=== PATIENT | female | born 1960 | race Caucasian/White ===

== ENCOUNTER 2024-04-13 10:54 | Emergency (ER) | payer MEDICAID ==
[~2024-04-13] VITALS: Ht 177.8 cm; Wt 141.0 kg
[2024-04-13 10:57] VITALS: RESP 16; TEMP 98.1; O2SAT 98
[2024-04-13 11:57] LABS: BASOPHILS % (AUTO) 0.5 % (0-1); EOSINOPHILS % (AUTO) 0.3 % (0-6); HEMATOCRIT 37.6 % (35.0-45.0); HEMOGLOBIN 12.5 g/dl (12.0-16.0); LYMPHOCYTES # (AUTO) 1.1 X10'3 (1.1-4.8); LYMPHOCYTES % (AUTO) 11.6 % (21-51); MEAN CORPUSCULAR HEMOGLOBIN 29.3 PG (27.0-31.0); MEAN CORPUSCULAR HGB CONC 33.2 g/dL (33.0-36.5); MEAN CORPUSCULAR VOLUME 88.5 FL (78-98); MEAN PLATELET VOLUME 8.2 FL (7.4-10.4); MONOCYTES # (AUTO) 0.6 X10'3 (0-0.9); MONOCYTES % (AUTO) 6.5 % (2-12); NEUTROPHILS # (AUTO) 7.6 X10'3 (1.8-7.7); NEUTROPHILS % (AUTO) 81.1 % (42-75); PLATELET COUNT 284 X10'3 (140-440); RED BLOOD COUNT 4.25 X10'6 (4.20-5.60); RED CELL DISTRIBUTION WIDTH 14.3 % (11.5-14.5); WHITE BLOOD COUNT 9.3 X10'3 (4.5-11.0)
[2024-04-13 12:23] LABS: ALBUMIN 3.6 G/DL (3.4-5.0); ANION GAP 9 (8-16); BLOOD UREA NITROGEN 15 MG/DL (7-18); BUN/CREATININE RATIO 17.4 (10.0-20.0); CALCIUM 9.1 MG/DL (8.5-10.1); CHLORIDE 110 MMOL/L (99-107); CREATININE 0.86 MG/DL (0.40-0.90); GLUCOSE 93 MG/DL (70-104); POTASSIUM 3.6 MMOL/L (3.5-5.1); SODIUM 143 MMOL/L (135-145); THYROID STIMULATING HORMONE 1.19 ulU/ml (0.34-4.50); TOTAL CARBON DIOXIDE 23.8 MMOL/L (24-32); eCRCL 73 ML/MIN; eGFR 67 ML/MIN
[2024-04-13 12:28] LABS: ETHANOL < 10 MG/DL (<10)
[2024-04-13 13:50] VITALS: BP_DIAS 121
[2024-04-13] MEDS ORDERED: AMLO5TAB16 PO (13:55)
[2024-04-13] MEDS ORDERED: NO HOME MEDS (13:58)
[2024-04-13 14:06] VITALS: BP_SYST 197; PULSE 109
[2024-04-13] MEDS: amLODIPine 5mg tablet PO ONE (14:06)
== END 2024-04-13 14:25 | disposition home or self-care (01) ==
LOC: ER 10:55
DX: F22 Delusional disorders (principal); Z20.822 Contact with and (suspected) exposure to COVID-19; Z79.899 Other long term (current) drug therapy
CPT/HCPCS: 36415; 80048; 80320; 84443; 85025; 87811; 99283

== ENCOUNTER 2024-04-14 09:12 | Emergency (ER) | payer MEDICAID ==
[~2024-04-14] VITALS: Ht 167.6 cm; Wt 143.2 kg
[~2024-04-14 09:12] MED LIST: AMLO5TAB16 PO; NO HOME MEDS
[2024-04-14 10:56] VITALS: BP 140/88; PULSE 100; RESP 18; TEMP 98.9; O2SAT 99
[2024-04-15] MEDS ORDERED: CEPH500C3 PO (11:46)
[2024-04-15] MEDS ORDERED: OLAN10TA73 PO (13:23)
[2024-04-15] MEDS ORDERED: AMLO5TAB PO (13:46)
[2024-04-15] MEDS ORDERED: CEPH500C2 PO (13:46)
== END 2024-04-14 10:57 | disposition home or self-care (01) ==
LOC: ER 09:13
DX: I10 Essential (primary) hypertension (principal); Z79.899 Other long term (current) drug therapy
CPT/HCPCS: 99281

== ENCOUNTER 2024-04-15 07:40 | Emergency (ER) | payer MEDICAID ==
[~2024-04-15] VITALS: Ht 177.8 cm; Wt 146.0 kg
[2024-04-15 09:37] LABS: URINE HCG NEGATIVE (NEG)
[2024-04-15 09:38] LABS: BILIRUBIN,URINE NEGATIVE (Neg); CLARITY,URINE CLOUDY (Clear); COLOR,URINE YELLOW (Yellow); GLUCOSE, URINE NEGATIVE (Neg); KETONES,URINE NEGATIVE (Neg); LEUKOCYTE ESTERASE ,URINE NEGATIVE (Neg); NITRITES, URINE POSITIVE (Neg); OCCULT BLOOD,URINE NEGATIVE (Neg); PROTEIN,URINE NEGATIVE (Neg); UROBILINOGEN,URINE 0.2 E.U/dL (0.2-1.0)
[2024-04-15 09:43] LABS: UA COLLECTION TYPE CLN CATCH MIDSTREAM
[2024-04-15 09:45] LABS: BACTERIA,URINE 4+ /HPF (Neg); RBC,URINE NONE SEEN /HPF (0-2); SQUAMOUS EPITHELIAL CELL,UR FEW /LPF (FEW); WBC,URINE 20-30 /HPF (0-4)
[2024-04-15 09:46] LABS: BASOPHILS % (AUTO) 0.4 % (0-1); EOSINOPHILS # (AUTO) 0.1 X10'3 (0-0.9); EOSINOPHILS % (AUTO) 0.6 % (0-6); HEMATOCRIT 42.6 % (35.0-45.0); HEMOGLOBIN 13.7 g/dl (12.0-16.0); LYMPHOCYTES # (AUTO) 0.8 X10'3 (1.1-4.8); LYMPHOCYTES % (AUTO) 10.5 % (21-51); MEAN CORPUSCULAR HEMOGLOBIN 29.7 PG (27.0-31.0); MEAN CORPUSCULAR HGB CONC 32.2 g/dL (33.0-36.5); MEAN CORPUSCULAR VOLUME 92.2 FL (78-98); MEAN PLATELET VOLUME 8.8 FL (7.4-10.4); MONOCYTES # (AUTO) 0.5 X10'3 (0-0.9); MONOCYTES % (AUTO) 7.1 % (2-12); NEUTROPHILS # (AUTO) 6.3 X10'3 (1.8-7.7); NEUTROPHILS % (AUTO) 81.4 % (42-75); PLATELET COUNT 209 X10'3 (140-440); RED BLOOD COUNT 4.62 X10'6 (4.20-5.60); RED CELL DISTRIBUTION WIDTH 15.2 % (11.5-14.5); WHITE BLOOD COUNT 7.8 X10'3 (4.5-11.0)
[2024-04-15 09:51] LABS: ALBUMIN 3.6 G/DL (3.4-5.0); ANION GAP 10 (8-16); BLOOD UREA NITROGEN 16 MG/DL (7-18); BUN/CREATININE RATIO 18.8 (10.0-20.0); CHLORIDE 111 MMOL/L (99-107); CREATININE 0.85 MG/DL (0.40-0.90); ETHANOL < 10 MG/DL (<10); GLUCOSE 93 MG/DL (70-104); POTASSIUM 3.5 MMOL/L (3.5-5.1); SODIUM 144 MMOL/L (135-145); THYROID STIMULATING HORMONE 1.01 ulU/ml (0.34-4.50); TOTAL CARBON DIOXIDE 22.7 MMOL/L (24-32); eCRCL 74 ML/MIN; eGFR 68 ML/MIN
[2024-04-15 10:05] LABS: URINE AMPHETAMINE SCREEN NEGATIVE (Neg); URINE BARBITUATE SCREEN NEGATIVE (Neg); URINE BENZODIAZEPINES SCREEN NEGATIVE (Neg); URINE CANNABINOID SCREEN NEGATIVE (Neg); URINE COCAINE SCREEN NEGATIVE (Neg); URINE METHADONE SCREEN NEGATIVE (Neg); URINE OPIATE SCREEN NEGATIVE (Neg); URINE PHENCYCLIDINE SCREEN NEGATIVE (Neg)
[2024-04-15] MEDS: cephalexin 250mg capsule PO ONE (11:21)
[2024-04-15] MEDS ORDERED: CEPH500C3 PO (11:46)
[2024-04-15] MEDS ORDERED: OLAN10TA73 PO (13:23)
[2024-04-15] MEDS ORDERED: CEPH500C2 PO (13:46)
[2024-04-15] MEDS ORDERED: AMLO5TAB PO (13:46)
[2024-04-15] MEDS: cephalexin 500mg capsule PO SCH (19:18)
[2024-04-15] MEDS: olanzapine 10mg tablet PO SCH (19:18)
[2024-04-16] MEDS: amLODIPine 5mg tablet PO SCH (07:35)
[2024-04-16] MEDS: OLANZAPINE 5 MG TABLET PO SCH (07:38)
[2024-04-16] MEDS ORDERED: CEPH-585 PO (15:42)
[2024-04-16] MEDS ORDERED: AMLO2.5T2 PO (15:43)
[2024-04-16 20:00] VITALS: BP_DIAS 94; RESP 18; TEMP 98; O2SAT 95
[2024-04-17 08:18] VITALS: BP_SYST 152; PULSE 105
== END 2024-04-17 12:19 | disposition still patient (30) ==
LOC: ER 07:41
DX: F99 Mental disorder, not otherwise specified (principal); Z20.822 Contact with and (suspected) exposure to COVID-19; N39.0 Urinary tract infection, site not specified; Z79.899 Other long term (current) drug therapy
CPT/HCPCS: 36415; 80048; 80305; 80320; 81001; 81025; 84443; 85025; 87811; 99284

== ENCOUNTER 2024-04-17 16:03 | Emergency (ER) | payer MEDICAID ==
[~2024-04-17] VITALS: Ht 177.8 cm; Wt 143.2 kg
[~2024-04-17 16:03] MED LIST changes: +AMLO2.5T2 PO; +AMLO5TAB PO; +CEPH-585 PO; +CEPH500C2 PO; +CEPH500C3 PO; +OLAN10TA73 PO
[2024-04-17 17:11] VITALS: BP 160/103; PULSE 80; RESP 17; TEMP 97.6; O2SAT 96
== END 2024-04-17 17:14 | disposition home or self-care (01) ==
LOC: ER 16:04
DX: Z00.00 Encounter for general adult medical examination without abnormal findings (principal); Z79.899 Other long term (current) drug therapy; Z79.2 Long term (current) use of antibiotics
CPT/HCPCS: 99281

== ENCOUNTER 2024-11-24 13:46 | Emergency (ER) | payer MEDICAID ==
[~2024-11-24] VITALS: Ht 177.8 cm; Wt 129.3 kg
[~2024-11-24 13:46] MED LIST changes: -AMLO2.5T2 PO; -AMLO5TAB16 PO; -CEPH500C2 PO; -CEPH500C3 PO; -NO HOME MEDS
--- NOTE | 2024-11-24 16:47 | Physician Documentation ---
History of Present Illness ~ Chief Complaint: Constipation Stated Complaint: CONSTIPATION Time Seen by MD: 19:06 HPI This is a 64-year-old female who presents with three weeks of constipation, patient reports she has not had a bowel movement three weeks. Patient reports no pain or fever. Patient reports she is passing gas. Patient reports that she started taking MiraLax this morning though has not had a bowel movement yet. Patient reports MiraLax prescribed by mental health provider after being hospitalized on a mental health hold. Medication Reconciliation Allergies: Coded Allergies: No Known Allergies (Unverified , 04/17/24) Scheduled Amlodipine Besylate (Amlodipine Besylate), 1 TABLET PO DAILY, (Reported) Bisacodyl (Bisacodyl), 1 SUPP RC DAILY Cephalexin*Monohydrate* (Keflex*), 1 CAP PO QID Olanzapine (Olanzapine), 25 MG PO HS, (Reported) Past Medical History Past Medical History: *PSYCH* Past Surgical History: no surgical history Drug Use: none Lives In: Other Review of Systems ROS Constipation as stated above in the HPI, otherwise all systems are reviewed and negative. Physical Exam Vital Signs: Temperature: 97.6, Source: Temporal, Heart Rate: 90, Respiratory Rate: 18, BP: 147/87, Pulse Oximetry: 97, Weight: 129.300 Physical Exam VITALS: Reviewed and as above. GENERAL: Alert, nontoxic appearing, no apparent distress. RESPIRATORY: No increased work of breathing, no respiratory distress, speaking in full clear sentences, sounds in all avila CV: Regular rate and rhythm no murmur GI: Soft, nontender, nondistended, no rebound, no guarding Progress Results/Orders Results/Orders Completed Orders - SIMA FORD [employer] Bisacodyl Suppository (Dulcolax Supposit (11/24/24 20:32) Medications Received in ER Medications (Trade) Dose Ordered Sig/Ilssette Route PRN Reason Start Time Stop Time Status Last Admin Dose Admin (Dulcolax suppository) 10 mg ONCE STAT RC 11/24/24 20:32 11/24/24 20:33 DC 11/24/24 20:41 10 MG Vital Signs 11/24/24 11/24/24 11/24/24 13:52 19:11 19:11 Temp 97.6 97.8 Pulse 90 88 Resp 18 16 16 B/P (MAP) 147/87 135/97 (110) Pulse Ox 97 100 O2 Flow Rate 0 EKG/XRAY/CT/US/VASC/MRI Abdominal X-Ray : Additional Comment I have reviewed and interpreted the imaging as: No intra abdominal free air, no air-fluid levels Medical Decision Making Findings This 64-year-old female presented with constipation, patient reports no bowel movement in three weeks however reported no abdominal pain or discomfort. Patient reports she is passing gas and has normal bowel sounds. Physical exam benign without abdominal tenderness. Patient has been previously prescribed laxative however just started taking it this morning. Patient's vital signs are stable and she is appropriate for outpatient follow up. Patient provided an additional laxative to help with her constipation and given home care instructions to include increasing fluid and fiber intake. Patient given the option to be treated for constipation in the emergency department with laxative and given the chance to wait to have a bowel movement however she prefers to go home to have bowel movement. Patient provided careful return to care precautions which she verbalized understanding of. Diff Dx Pain:Considerations: Include: Bowel obstruction, Inflammatory BD, Ischemic bowel, Other (Fecal impaction) Departure Time of Disposition: 20:34 Disposition: 01 HOME / SELF CARE / HOMELESS Impression: Primary Impression: Constipation Qualified Codes: K59.00 - Constipation, unspecified Condition: Stable Discharge Instructions: Constipation, Adult Additional Instructions: Please continue to use your prescribed MiraLax until you a bowel movement. Additionally use the prescribed suppository until you a bowel movement though do not use this for more than seven days. Increase your fiber intake I recommend having a fiber supplement such as MiraLax. Stay well hydrated. Please follow up with your primary care provider or the [facility] in the next few days. Please return to the emergency department for any new or worsening concerning symptoms including but not limited to vomiting or abdominal pain. Referrals: NO PRIMARY CARE PROVIDER (PCP) Prescriptions Bisacodyl (Bisacodyl) 10 Mg Supp.rect 1 SUPP RC DAILY for constipation for 6 Days, #6 SUPP 0 Refills Prov: SIMA FORD 11/24/24 Education Educated: Patient Educated regarding: diagnosis, treatment, prognosis, need for follow up Signature Scribe Signature: No scribe Attestation: The note accurately reflects work and decisions made by me.LISSETTE Menon 11/25/24 01:47 SIMA FORD November 24, 2024 16:47
[2024-11-24 19:11] VITALS: BP 135/97; PULSE 88; RESP 16; TEMP 97.8; O2SAT 100
[2024-11-24] MEDS ORDERED: BISA10SU11 RC (20:37)
[2024-11-24] MEDS: bisacodyl 10mg suppository rectal RC STA (20:41)
--- NOTE | 2024-11-26 14:05 | RADIOLOGY REPORT ---
Date: 11/24/2024 02:15 PM Examination: DI ABDOMEN,SINGLE VIEW(KUB) History: constipation Comparison: None TECHNIQUE: Frontal views of the abdomen was obtained. FINDINGS: Bowel gas pattern is unremarkable. Large stool burden. The lung bases are unremarkable. No acute osseous abnormality identified. IMPRESSION: Nonobstructive bowel gas pattern. Large stool burden.
== END 2024-11-24 20:52 | disposition home or self-care (01) ==
LOC: ER 13:47
DX: K59.00 Constipation, unspecified (principal); Z88.1 Allergy status to other antibiotic agents
CPT/HCPCS: 74018; 99283

== ENCOUNTER 2024-12-10 10:40 | Emergency (ER) | payer MEDICAID ==
[~2024-12-10] VITALS: Ht 177.8 cm; Wt 125.9 kg
[~2024-12-10 10:40] MED LIST changes: +BISA10SU11 RC
--- NOTE | 2024-12-10 10:53 | Physician Documentation ---
History of Present Illness ~ General Stated Complaint: GE Time Seen by MD: 10:54 OK to notify your PCP?: Yes Source: patient Mode of Arrival: POV Exam Limitations: no limitations History of Present Illness Initial Comments 64 y/o female here for medical clearance for [facility]. Patient states she needs rx for her olanzapine 2.5mg. Last took olanzapine October 2023 because she ran out of the rx. No hallucinations, delirium, SI or HI. No h/o violence or being in trouble with the law. Medication Reconciliation Allergies: Coded Allergies: No Known Allergies (Unverified , 04/17/24) Scheduled Amlodipine Besylate (Amlodipine Besylate), 1 TABLET PO DAILY, (Reported) Bisacodyl (Bisacodyl), 1 SUPP RC DAILY Cephalexin*Monohydrate* (Keflex*), 1 CAP PO QID Olanzapine (Olanzapine), 25 MG PO HS, (Reported) Past Medical History Past Medical History: *PSYCH* Past Surgical History: no surgical history Drug Use: none Lives In: Other Review of Systems All Other Systems at this time: Reviewed and Negative Physical Exam Physical Exam Physical Exam General Appearance: Alert, WD/WN. NAD. HEENT: NCAT, PERRL, EOMI. Neck: Supple, trachea midline. Cardiovascular: RRR. No m/r/g. Lungs: CTAB. Breathing unlabored Extremities: Normal inspection. No edema. Skin: Warm/dry, normal color Neurological: Alert and oriented x4, normal gait. Psychiatric: Affect congruent with mood. Progress Results/Orders Results/Orders Vital Signs 12/10/24 10:48 Temp 98.0 Pulse 91 Resp 16 B/P (MAP) 158/94 Pulse Ox 98 O2 Flow Rate 0 Medical Decision Making Differential Diagnosis Patient is stable without any acute psychiatric symptoms or complaints. Evaluated to make sure no psychosis, not gravely disabled or a danger to herself or others and she had no signs or symptoms concerning for this. Appeared to be here just for mediation refill and clearance for [facility]. Departure Time of Disposition: 13:15 Disposition: 01 HOME / SELF CARE / HOMELESS Impression: Primary Impression: Schizoaffective disorder Qualified Codes: F25.9 - Schizoaffective disorder, unspecified Condition: Stable Discharge Instructions: Medical Screening Exam Additional Instructions: REFILLED OLANZAPINE 2.5MG PATIENT HAS NO ACUTE PSYCHOTIC FEATURES, NOT GRAVELY DISABLED, NOT DANGER TO SELF OR OTHERS, NO REASON TO KEEP HERE ON HOLD. PATIENT IS CLEARED FOR [facility] FROM AN ER STANDPOINT BUT EXPLAINED THAT THERE MAY BE MORE INVOLVED IN ORDER FOR HER TO STAY THERE Referrals: NO PRIMARY CARE PROVIDER (PCP) Prescriptions Olanzapine (Olanzapine) 2.5 Mg Tablet 1 TAB PO HS for 30 Days, #30 TAB 0 Refills Prov: CARMELO LANDIS 12/10/24 Education Educated: Patient Educated regarding: diagnosis, treatment, need for follow up Signature Scribe Signature: X Attestation: X CARMELO LANDIS December 10, 2024 10:53
[2024-12-10] MEDS ORDERED: OLAN2.5T77 PO (13:15)
[2024-12-10] MEDS: OLANZapine 2.5MG tablet PO ONE (13:25)
[2024-12-10 13:35] VITALS: BP 155/79; PULSE 80; RESP 17; TEMP 98; O2SAT 99
== END 2024-12-10 13:38 | disposition home or self-care (01) ==
LOC: ER 10:41
DX: F25.9 Schizoaffective disorder, unspecified (principal); Z79.899 Other long term (current) drug therapy
CPT/HCPCS: 99283

== ENCOUNTER 2024-12-20 09:02 | Inpatient (IN) | payer MEDICAID ==
[~2024-12-20] VITALS: Ht 177.8 cm; Wt 116.0 kg
[~2024-12-20 09:02] MED LIST changes: +OLAN2.5T77 PO
--- NOTE | 2024-12-20 09:15 | Physician Documentation ---
History of Present Illness ~ Chief Complaint: Mental Health Eval Stated Complaint: MH EVAL Time Seen by MD: 09:12 HPI 64-YEAR-OLD FEMALE PRESENTS TO THE ED VIA [facility]. PATIENT WAS STAYING UNDER A TEMPORARY HOUSING VIA THE [facility]. HOW EVER THE PATIENT HAS A LONG HISTORY WITH MENTAL ILLNESS AND HIS REPORTEDLY NOT TAKING ALL OF HER PRESCRIBED MEDS. CAN NOT REPORT WHICH WHEN SHE IS SUPPOSED TO TAKE. OFFICIALS FROM THE [facility] INDICATE THAT SHE HAS BEEN BEHAVING ERRATICALLY WITH GRANDIOSE DELUSIONS YOUR CONCERNED THAT SHE NEEDS TO BE STABILIZED VIA MEDICATIONS AND POTENTIALLY SEEN AT THE [facility] IN ORDER FOR HER TO RETURN TO THE [facility] Medication Reconciliation Allergies: Coded Allergies: No Known Allergies (Unverified , 04/17/24) Scheduled Amlodipine Besylate (Amlodipine Besylate), 1 TABLET PO DAILY, (Reported) Bisacodyl (Bisacodyl), 1 SUPP RC DAILY Olanzapine (Olanzapine), 25 MG PO HS, (Reported) Olanzapine (Olanzapine), 1 TAB PO HS Quetiapine Fumarate (Quetiapine Fumarate), 1 TAB PO HS, (Reported) Discontinued Medications Cephalexin*Monohydrate* (Keflex*), 1 CAP PO QID Discontinued Reason: patient no longer taking Past Medical History Past Medical History: *PSYCH* Past Surgical History: no surgical history Drug Use: none Lives In: Other Review of Systems All Other Systems at this time: Reviewed and Negative ROS As stated above in the HPI, otherwise all systems are reviewed and negative. Physical Exam Physical Exam General: Alert, no apparent distress. Respiratory: Lungs clear, no respiratory distress. Neurologic: Oriented x3 Psychiatric: PLEASANT,YET ANXIOUS APPEARING. Speaking in tinge until sentences Skin: Normal color, warm and dry. No edema, no ecchymosis. Progress Results/Orders Results/Orders Orders - KENDRICK YOUNG NP Med Rec (12/20/24 09:11) 1799.11 (12/20/24 09:11) Close Observation Level (12/20/24 09:11) Covid19 Binax Poc Result Entry (12/20/24 09:11) Regular Diet (12/20/24 Lunch) Ceftriaxone 2gm/D5w 50ml Bag (Rocephin 2 (12/20/24 11:05) Page Hospitalist (12/20/24 ) Completed Orders - KENDRICK YOUNG NP Cbc/Diff (12/20/24 09:11) Hcg, Ur Ql (12/20/24 09:11) Drug Screen, Urine (12/20/24 09:11) Ethanol (12/20/24 09:11) TSH (12/20/24 09:11) BMP (12/20/24 09:11) Ua With Microscopic (12/20/24 10:23) Normal Saline 1000ml (Sodium Chloride 10 (12/20/24 11:05) Vital Signs 12/20/24 12/20/24 12/20/24 09:10 09:49 09:58 Temp 97.8 97.8 Pulse 108 89 Resp 18 18 17 B/P (MAP) 199/110 137/73 (94) Pulse Ox 97 96 Laboratory Tests Test 12/20/24 09:25 12/20/24 10:23 12/20/24 10:35 White Blood Count 9.3 Red Blood Count 4.44 Hemoglobin 13.2 Hematocrit 39.7 Mean Corpuscular Volume 89.5 Mean Corpuscular Hemoglobin 29.8 Mean Corpuscular Hemoglobin Concent 33.3 Red Cell Distribution Width 14.5 Platelet Count 294 Mean Platelet Volume 8.0 Neutrophils (%) (Auto) 80.0 H Lymphocytes (%) (Auto) 13.8 L Monocytes (%) (Auto) 5.1 Eosinophils (%) (Auto) 0.7 Basophils (%) (Auto) 0.4 Neutrophils # (Auto) 7.5 Lymphocytes # (Auto) 1.3 Monocytes # (Auto) 0.5 Eosinophils # (Auto) 0.1 Basophils # (Auto) 0.0 CBC Comment Sodium Level 146 H Potassium Level 3.6 Chloride Level 112 H Carbon Dioxide Level 21.7 L Anion Gap 12 Blood Urea Nitrogen 18 Creatinine 0.99 H Estimated GFR/1.73 m2 57 BUN/Creatinine Ratio 18.2 Glucose Level 156 H Calcium Level 9.0 Albumin 3.7 Thyroid Stimulating Hormone (TSH) 1.15 Chemistry Comments Ethyl Alcohol Level < 10 Urine Specimen Description Cln catch midstream Urine Color Yellow Urine Clarity Slightly cloudy Urine pH 6.0 Urine Specific [place] 1.025 Urine Protein Negative Urine Glucose (UA) Negative Urine Ketones Negative Urine Occult Blood Trace-intact Urine Nitrite Positive H Urine Bilirubin Negative Urine Urobilinogen 0.2 Urine Leukocyte Esterase Small H Urine RBC 0-2 Urine WBC Tntc H Urine WBC Clumps Few Urine Squamous Epithelial Cells Many Urine Transitional Epithelial Cells [place] Urine Bacteria 4+ Urine Mucus Few Volume Urine Centrifuged 10 ml Urine HCG, Qualitative Negative Urine Comment Urine Opiates Screen Negative Urine Methadone Screen Negative Urine Fentanyl Screen Negative Urine Barbiturates Screen Negative Urine Phencyclidine Screen Negative Urine Amphetamines Screen Negative Urine Benzodiazepines Screen Negative Urine Cocaine Screen Negative Urine Cannabinoids Screen Negative Drug Screen Comment Medical Decision Making Findings Further investigation patient's urinalysis came back with a positive UTI and positive nitrites. Maybe it is attributing to her change in behavior that has been reported by the [facility]. poor historian at this current time. Toxic appearing however I am going to request hospital admission for further evaluation to reassess her current metabolic encephalopathy likely secondary to her UTI Differential Dx:Considerations: Include: Alcohol abuse, Anxiety, Bipolar disorder, Conversion disorder, Depression, Encephaloathy, Homicidal, Panic disorder, Personality disorder, Schizophrenia, Substance abuse, Suicidal, Other Departure Impression: Primary Impression: Metabolic encephalopathy Additional Impressions: UTI (urinary tract infection) Pyelonephritis Referrals: NO PRIMARY CARE PROVIDER (PCP) Signature Scribe Signature: g Attestation: The note accurately reflects work and decisions made by me.Kendrick Winston NP 12/20/24 11:30 KENDRICK YOUNG NP Dec 20, 2024 09:15
[2024-12-20 09:37] LABS: BASOPHILS % (AUTO) 0.4 % (0-1); EOSINOPHILS # (AUTO) 0.1 X10'3 (0-0.9); EOSINOPHILS % (AUTO) 0.7 % (0-6); HEMATOCRIT 39.7 % (35.0-45.0); HEMOGLOBIN 13.2 g/dl (12.0-16.0); LYMPHOCYTES # (AUTO) 1.3 X10'3 (1.1-4.8); LYMPHOCYTES % (AUTO) 13.8 % (21-51); MEAN CORPUSCULAR HEMOGLOBIN 29.8 PG (27.0-31.0); MEAN CORPUSCULAR HGB CONC 33.3 g/dL (33.0-36.5); MEAN CORPUSCULAR VOLUME 89.5 FL (78-98); MONOCYTES # (AUTO) 0.5 X10'3 (0-0.9); MONOCYTES % (AUTO) 5.1 % (2-12); NEUTROPHILS # (AUTO) 7.5 X10'3 (1.8-7.7); PLATELET COUNT 294 X10'3 (140-440); RED BLOOD COUNT 4.44 X10'6 (4.20-5.60); RED CELL DISTRIBUTION WIDTH 14.5 % (11.5-14.5); WHITE BLOOD COUNT 9.3 X10'3 (4.5-11.0)
[2024-12-20 09:58] LABS: ALBUMIN 3.7 G/DL (3.4-5.0); ANION GAP 12 (8-16); BLOOD UREA NITROGEN 18 MG/DL (7-18); BUN/CREATININE RATIO 18.2 (10.0-20.0); CHLORIDE 112 MMOL/L (99-107); CREATININE 0.99 MG/DL (0.40-0.90); ETHANOL < 10 MG/DL (<10); GLUCOSE 156 MG/DL (70-104); POTASSIUM 3.6 MMOL/L (3.5-5.1); SODIUM 146 MMOL/L (135-145); THYROID STIMULATING HORMONE 1.15 ulU/ml (0.34-4.50); TOTAL CARBON DIOXIDE 21.7 MMOL/L (24-32); eCRCL 63 ML/MIN; eGFR 57 ML/MIN
[2024-12-20] MEDS ORDERED: QUET50TA24 PO (10:20)
[2024-12-20 10:36] LABS: BILIRUBIN,URINE NEGATIVE (Neg); CLARITY,URINE SLIGHTLY CLOUDY (Clear); COLOR,URINE YELLOW (Yellow); GLUCOSE, URINE NEGATIVE (Neg); KETONES,URINE NEGATIVE (Neg); LEUKOCYTE ESTERASE ,URINE SMALL (Neg); NITRITES, URINE POSITIVE (Neg); OCCULT BLOOD,URINE TRACE-INTACT (Neg); PROTEIN,URINE NEGATIVE (Neg); UROBILINOGEN,URINE 0.2 E.U/dL (0.2-1.0)
[2024-12-20 10:43] LABS: UA COLLECTION TYPE CLN CATCH MIDSTREAM
[2024-12-20 10:44] LABS: BACTERIA,URINE 4+ /HPF (Neg); MUCUS STRANDS FEW /LPF (Neg); RBC,URINE 0-2 /HPF (0-2); SQUAMOUS EPITHELIAL CELL,UR MANY /LPF (FEW); TRANSITIONAL EPI CELLS,URINE NNP /HPF; WBC CLUMPS,URINE FEW /HPF (NEGATIVE); WBC,URINE TNTC /HPF (0-4)
[2024-12-20 11:19] LABS: URINE AMPHETAMINE SCREEN NEGATIVE (Neg); URINE BARBITUATE SCREEN NEGATIVE (Neg); URINE BENZODIAZEPINES SCREEN NEGATIVE (Neg); URINE CANNABINOID SCREEN NEGATIVE (Neg); URINE COCAINE SCREEN NEGATIVE (Neg); URINE HCG NEGATIVE (NEG); URINE METHADONE SCREEN NEGATIVE (Neg); URINE OPIATE SCREEN NEGATIVE (Neg); URINE PHENCYCLIDINE SCREEN NEGATIVE (Neg)
[2024-12-20] MEDS: normal saline 1000ML IV soln IVB ONE (11:58)
[2024-12-20] MEDS: CefTRIAXone 2gm/D5W 50ml BAG 50 ML IV SCH (12:00)
[2024-12-20] MEDS ORDERED: ondansetron/PF 4mg/2ml inj IV PRN (13:25)
[2024-12-20] MEDS ORDERED: potassium Cl 40MEQ/1/2NS 520ml 520 ML IV PRN (13:25)
[2024-12-20] MEDS ORDERED: magnesium hydroxide 30ml (MOM) UD suspension PO PRN (13:25)
[2024-12-20] MEDS ORDERED: mag hydrox/Alum hydrox/simeth 30ml oral suspension PO PRN (13:25)
[2024-12-20] MEDS ORDERED: magnesium sulf-water 2g/50mL 50 ML IV PRN (13:25)
[2024-12-20] MEDS ORDERED: acetaminophen 325mg tablet PO PRN (13:25)
[2024-12-20] MEDS ORDERED: potassium Cl 20 mEq SR tablet PO PRN ×2 (13:25)
[2024-12-20] MEDS ORDERED: magnesium sulf-water 4G/100mL 100 ML IV PRN (13:25)
[2024-12-20] MEDS: normal saline 1000ml 1,000 ML IV SCH (13:50)
[2024-12-20] MEDS: hydrALAZINE 20mg/ml inj. IV ONE (16:13)
[2024-12-20 16:49] VITALS: BP 162/73; PULSE 90; RESP 16; TEMP 98.6; O2SAT 99
[2024-12-20 18:00] VITALS: BP 162/73; PULSE 90; RESP 19; TEMP 98.6; O2SAT 99
--- NOTE | 2024-12-20 19:17 | HISTORY AND PHYSICAL ---
History & Physical Providers to CC ~ History of Present Illness Reason for Admit\Complaint: Metabolic encephalopathy- eval for CVA History of Present Illness This is a 64-year-old female who is having difficulty with memory and a poor historian regards to her medical history and the patient exhibits word-finding in his aware that she is having difficulty coming up with various items of her medical history. The patient was seen at [facility] (formerly [facility]) in his staying at a temporary housing at this program. Per ED note the patient is noncompliant with her psychiatric medications and per [facility] the patient is been acting erratically and has grandiose delusions and is here for initially mental health evaluation in his wearing green scrubs. The patient has a UTI and when I interviewed her I am concerned that the patient may have a CVA prior to evaluating the patient had admitted the patient to surgery floor I am going to transfer the patient to the ortho neuro floor on telemetry an MRI of the head is ordered as well as the CTA of the head and CTA of the head and neck and an echocardiogram as well as a fasting lipid panel. The patient is receiving IV Rocephin for her UTI- I have placed her on a 1799.11 hold with a sitter. Allergies: Coded Allergies: No Known Allergies (Unverified , 04/17/24) Home Medications Home Medications Active Olanzapine 2.5 Mg Tablet 1 Tab PO HS 30 Days Bisacodyl 10 Mg Supp.rect 1 Supp RC DAILY 6 Days Reported Quetiapine Fumarate 50 Mg Tablet 1 Tab PO HS Amlodipine Besylate 5 Mg Tablet 1 Tablet PO DAILY Past Medical History Past Medical History Questionable history of diabetes questionable history of hypertension and questionable history hyperlipidemia. Schizoaffective disorder Bipolar disorder Past Surgical History Surgical History Comment Unobtainable Past Social History Social History Comment Patient denies smoking cigarettes, reports a history of alcohol use however his sober, inconsistent answer to the question if she uses drugs and then mentions alcohol. Full code status by default ROS ROS Except for positives in the HPI the rest of the 14 point review systems is negative Exam Vitals: Vital Signs Date Time Temp Pulse Resp B/P (MAP) Pulse Ox O2 Delivery O2 Flow Rate FiO2 12/20/24 16:49 98.6 90 16 162/73 (102) 99 Room Air General: Gen. No acute distress alert and confused and exhibits expressive aphasia Lungs clear to ascultation bilaterally, no wheezes rales or rhonchi appreciated Heart normal sinus rhythm no murmurs rubs or clicks noted Abdomen soft nontender bowel sounds are normoactive Lower extremities no clubbing cyanosis, nor edema appreciated bilaterally Diagnostic Data Last Recorded Lab Results: 12/20/2492412/20/24924 Advance Care Planning Advanced Care planning: N/A Problems: (1) UTI (urinary tract infection) Status: Acute Additional Plan # metabolic encephalopathy- secondary to UTI versus CVA versus decompensated schizoaffective disorder/bipolar disorder See below # UTI IV Rocephin Urine culture sent # expressive aphasia Workup for CVA MRI of the head CTA of the head head and neck CTA of the head. Echocardiogram Fasting lipid panel On telemetry Physical therapy # bipolar/schizoaffective disorder On a 1799. hold for gravely disabled Awaiting psychiatric evaluation/ [facility] evaluation when medically cleared Continue home meds for now Sitter is ordered # hypernatremia Mild Monitor daily CMP # hyperglycemia-possible diabetes mellitus history of Blood sugars are monitored via a.m. labs Hemoglobin A1c # DVT prophylaxis SQ Lovenox Full code status by default Date of Service: Dec 20, 2024 Billing Provider: RODRIGUEZ GRULLON DO Common Visit Codes: [id number] INP/OBS CARE (HIGH) RODRIGUEZ GRULLON DO Dec 20, 2024 19:17
[2024-12-20] MEDS ORDERED: iohexol 350MG/ML 100ml bottle IV ONE (19:34)
[2024-12-20 20:00] VITALS: RESP 19; O2SAT 99
[2024-12-20] MEDS: K and/or MAG REPLACEMENT MC SCH (20:00)
[2024-12-20] MEDS ORDERED: olanzapine 10mg tablet PO SCH (21:00)
[2024-12-20] MEDS: OLANZapine 2.5MG tablet PO SCH (21:00)
--- NOTE | 2024-12-20 21:42 | [facility] CONSULT REPORT ---
[facility] Procedure Note [facility] Procedure Note Consult [facility] Note # Demographics Consult Type: Acute Stroke Level 2 (4.5-24 hrs) Patient Location: Inpatient First Name: Heather Last Name: Silviano Date of : 1960 Age: 64 Gender: Female Facility: [facility] Time of Initial Page (): 12/20/2024 21:29 Time of Return Call (): 12/20/2024 21:29 # HPI Chief Complaint: - altered mental state - confusion History: 64yof who was admitted for metabolic encephalopathy, had some word findings. Code stroke called for this encephalopathy. She says she has had these issues for a few months but seems to be a poor historian. Initial concern was for expressive aphasia but this seems to have resolved. Also found to have a UTI Last Known Normal: - I have collected independent history specific to time last normal or last known well. We have collaborated with the provider and at this time, we have the most current timeline with the information that is available. # Scores Time of exam and NIHSS (): 12/20/2024 21:36 Level of Consciousness 1a: [0] = Alert; keenly responsive LOC Questions 1b: [0] = Answers both questions correctly LOC Commands 1c: [0] = Performs both tasks correctly Best Gaze 2: [0] = Normal Visual 3: [0] = No visual loss Facial Palsy 4: [0] = Normal symmetrical movements Motor Arm Left 5a: [0] = No drift Motor Arm Right 5b: [0] = No drift Motor Leg Left 6a: [0] = No drift Motor Leg Right 6b: [0] = No drift Limb Ataxia 7: [0] = Absent Sensory 8: [1] = [id number] sensory loss Best Language 9: [0] = No aphasia Dysarthria 10: [0] = Normal Extinction and Inattention 11: [0] = No abnormality NIHSS Total: 1 # Data Time Head CT personally read by me (Wing ): 12/20/2024 21:[address]: - no bleed - preliminarily reviewed by me, please refer to radiology read for official reading CTA Head: - no large vessel occlusion - preliminarily reviewed by me, please refer to radiology read for official reading # Assessment Impression: Suspect presentation is more related to toxic/metabolic encephalopathy from UTI. Pt currently pending MRI brain. If MRI brain with no stroke, would not proceed with rest of stroke workup # Plan Thrombolytic/Intervention: NOT IV Thrombolysis or IA Intervention candidate Thrombolytic Exclusion: > 4.5 hours Intraarterial Exclusion: - clinical exam not consistent with presence of large vessel occlusion (LVO), can reconsider if LVO found on vascular imaging Labs: Full infectious and metabolic workup for AMS Imaging: (urgency: routine): - MRI Brain without contrast Medication: Continue treatment for UTI Other: - If patient has any neurological deterioration please call me back immediately # Logistics Attestation of consult completion: The patient is located at: [facility]. Facility staff participated in the visit. I performed this telemedicine visit from my offsite office utilizing interactive 2 way audio and visual telecommunication technology. Total time spent in telemedicine encounter: I spent 23 minutes reviewing clinical data and/or imaging, obtaining history, examining the patient, communicating with the onsite care team, and in preparation of this report. # Demographics First Name: Heather Last Name: Silviano Facility: [facility] Neuro Consult Order placed for: Yes ALONA WARREN MD Dec 20, 2024 21:42
[2024-12-20 22:00] VITALS: BP 157/77; PULSE 69; RESP 16; TEMP 96.6; O2SAT 99
[2024-12-20] MEDS: QUEtiapine 25mg tablet PO SCH (22:03)
[2024-12-20] MEDS: enoxaparin 40mg/0.4ml syringe SQ SCH (22:04)
[2024-12-20] MEDS: docusate sod 100mg capsule PO SCH (22:04)
--- NOTE | 2024-12-20 22:48 | RADIOLOGY REPORT ---
EXAM: CT CTA NECK/HEAD, CT CT HEAD CLINICAL HISTORY: Expressive aphasia TECHNIQUE: CT angiogram of the head and neck was performed without and with intravenous contrast. 100 ml of omnipaque 350 was administered intravenously. 3D MIP reconstructed images were created and arc hived on the PACS system. This exam was performed according to our departmental dose optimization pro gram. Up-to-date CT equipment and radiation dose reduction techniques are utilized as appropriate. COMPARISON: None FINDINGS: CTA head: The ventricles and subarachnoid spaces are normal in size and configuration. The hunt white matter in terfaces are maintained There is no midline shift or mass effect. There is no evidence of acute intra cranial hemorrhage. The basal cisterns are patent. The calvarium is intact. The distal internal carotid, vertebral, and basilar arteries are patent without focal narrowing or oc clusion. The anterior, middle, and posterior cerebral arteries are patent without focal narrowing. No aneurysm or arteriovenous malformation is identified. CTA neck: The aortic arch vessel origins are widely patent. The common carotid and cervical portions of the int ernal carotid and vertebral arteries are patent without focal narrowing according to NASCET criteria. Mild mixed plaque in the bilateral carotid bifurcations. No aneurysm, AVM, or dissection is identifi ed. The cervical soft tissues are unremarkable. The paranasal sinus and mastoid air cells are clear. The lung apices are clear. Multilevel cervical spondylosis. There is multilevel facet and uncovertebral h ypertrophy resulting in up to severe left neural foraminal stenosis at at C3-C4. Many of the mandibu lar teeth have been removed. There are scattered dental caries and periapical lucencies in the remai cristina mandibular teeth. The patient is edentulous in the maxilla. IMPRESSION: 1. Widely patent arteries in the head and neck without large vessel occlusion, significant stenosis, aneurysm, AVM or dissection. 2. No acute intracranial abnormality. 3. Scattered dental caries and periapical lucencies in some of the remaining mandibular teeth. 4. Severe degenerative left neural foraminal stenosis at C3-C4
[2024-12-21 06:04] LABS: BASOPHILS % (AUTO) 0.5 % (0-1); EOSINOPHILS # (AUTO) 0.1 X10'3 (0-0.9); EOSINOPHILS % (AUTO) 2.2 % (0-6); HEMATOCRIT 35.1 % (35.0-45.0); HEMOGLOBIN 11.6 g/dl (12.0-16.0); LYMPHOCYTES # (AUTO) 2.2 X10'3 (1.1-4.8); LYMPHOCYTES % (AUTO) 36.3 % (21-51); MEAN CORPUSCULAR HEMOGLOBIN 29.9 PG (27.0-31.0); MEAN CORPUSCULAR HGB CONC 33.1 g/dL (33.0-36.5); MEAN CORPUSCULAR VOLUME 90.1 FL (78-98); MEAN PLATELET VOLUME 8.1 FL (7.4-10.4); MONOCYTES # (AUTO) 0.5 X10'3 (0-0.9); MONOCYTES % (AUTO) 8.1 % (2-12); NEUTROPHILS # (AUTO) 3.3 X10'3 (1.8-7.7); NEUTROPHILS % (AUTO) 52.9 % (42-75); PLATELET COUNT 227 X10'3 (140-440); RED BLOOD COUNT 3.89 X10'6 (4.20-5.60); RED CELL DISTRIBUTION WIDTH 14.5 % (11.5-14.5); WHITE BLOOD COUNT 6.2 X10'3 (4.5-11.0)
[2024-12-21 06:23] LABS: ALANINE AMINOTRANSFERASE 14 U/L (12-78); ALBUMIN/GLOBULIN RATIO 0.9 (1.1-1.5); ALKALINE PHOSPHATASE 53 IU/L (46-116); ANION GAP 10 (8-16); ASPARTATE AMINO TRANSFERASE 43 U/L (10-37); BILIRUBIN,TOTAL 0.5 MG/DL (0.1-1.0); BLOOD UREA NITROGEN 10 MG/DL (7-18); BUN/CREATININE RATIO 12.8 (10.0-20.0); CALCIUM 8.7 MG/DL (8.5-10.1); CHLORIDE 113 MMOL/L (99-107); CHOL/HDL RATIO 3.6 (0.00-4.99); CHOLESTEROL 152 MG/DL (0-200); CREATININE 0.78 MG/DL (0.40-0.90); GLUCOSE 93 MG/DL (70-104); HDL CHOLESTEROL 42 MG/DL (35-60); LDL CHOLESTEROL 88 MG/DL (50-100); MAGNESIUM 2.2 MG/DL (1.5-2.4); POTASSIUM 3.5 MMOL/L (3.5-5.1); SODIUM 146 MMOL/L (135-145); TOTAL CARBON DIOXIDE 23.4 MMOL/L (24-32); TOTAL PROTEIN 6.2 G/DL (6.4-8.2); TRIGLYCERIDES 87 MG/DL (20-135); eCRCL 80 ML/MIN; eGFR 75 ML/MIN
[2024-12-21 06:33] LABS: HEMOGLOBIN A1C 5.2 % (4.5-6.2)
[2024-12-21 06:53] VITALS: BP 127/71; PULSE 60; RESP 16; TEMP 98; O2SAT 95
[2024-12-21 08:00] VITALS: RESP 14; O2SAT 96
[2024-12-21] MEDS: bisacodyl 10mg suppository rectal RC SCH (08:00)
[2024-12-21] MEDS: CefTRIAXone/D5W-Rocephin 1gm 50 ML IV SCH (08:16)
[2024-12-21] MEDS: amLODIPine 5mg tablet PO SCH (08:16)
[2024-12-21 10:00] VITALS: BP 152/85; PULSE 77; RESP 20; TEMP 98; O2SAT 98
--- NOTE | 2024-12-21 12:15 | PROGRESS NOTE ---
Daily Progress Note Providers to CC ~ Antibiotic Timeout Antibiotic Ordered?: Yes If Yes, Indications: UTI Subjective No acute events overnight. Patient examined at bedside. No new complaints. Patient denies chest pain, sob, palpitations, abdominal pain, n/v/d. CT head, CTA head/neck negative. MRI head negative for acute cerebrovascular ischemia. Tele sinus in 60s. Objective Vital Signs Date Time Temp Pulse Resp B/P (MAP) Pulse Ox O2 Delivery O2 Flow Rate FiO2 12/21/24 10:00 98.0 77 20 152/85 (107) 98 Room Air Result Diagram: 12/21/2452312/21/24523 Physical Exam General: Generalized weakness, A&Ox 3, NAD HEENT: Normocephalic, PERRLA Neck: Supple, trachea midline, no JVD Chest: Clear to auscultation bilaterally Cardiovascular: RRR, S1&S2 GI: Soft and nontender Extremities: No cyanosis/clubbing/or edema RECREATION THERAPY DIRECTOR: CN II-XII intact, no focal deficits Musculoskeletal: No paraspinal muscle tenderness, no muscle spasm Skin: Warm and intact Problem\Assessment\Plan Problems/Diagnosis: (1) UTI (urinary tract infection) # Metabolic encephalopathy 2/2 UTI vs CVA vs worsening schizophrenia # UTI -12/21: continued on Rocephin; CT head, CTA head/neck negative; tele sinus in 60s, MRI head negative for acute cerebrovascular ischemia. # Expressive aphasia # Bipolar/schizoaffective disorder -on 1798.11 hold for gravely disabled, sitter -Awaiting psychiatric evaluation/ major hospital evaluation when medically cleared # Hypernatremia # Hyperglycemia -12/21: dc NS, start D5W, hyper/hypoglycemic protocol DVT/VTE prophylaxis: Lovenox Code Status: Full Code Date of Service: Dec 21, 2024 Billing Provider: RUBINA CEJA Common Visit Codes: [id number] INP/OBS CARE (HIGH) RUBINA CEJA Dec 21, 2024 12:15
[2024-12-21] MEDS ORDERED: DEXTROSE 15 GM of carb/4 tabs (each vial/BOTTLE has 4 tablets) PO PRN ×2 (12:20)
[2024-12-21] MEDS ORDERED: glucagon, human recombinant 1mg kit SUBCUT PRN (12:20)
[2024-12-21] MEDS ORDERED: dextrose 50%-water 50ml dispensing syringe IV PRN ×2 (12:20)
[2024-12-21] MEDS: dextrose 5%-water 1,000 ML IV SCH (12:50)
[2024-12-21 14:08] LABS: BILIRUBIN,URINE NEGATIVE (Neg); CLARITY,URINE CLEAR (Clear); COLOR,URINE YELLOW (Yellow); GLUCOSE, URINE NEGATIVE (Neg); KETONES,URINE NEGATIVE (Neg); LEUKOCYTE ESTERASE ,URINE TRACE (Neg); NITRITES, URINE NEGATIVE (Neg); OCCULT BLOOD,URINE NEGATIVE (Neg); PROTEIN,URINE NEGATIVE (Neg); UROBILINOGEN,URINE 0.2 E.U/dL (0.2-1.0)
[2024-12-21 14:16] LABS: BACTERIA,URINE NONE SEEN /HPF (Neg); RBC,URINE 0-2 /HPF (0-2); SQUAMOUS EPITHELIAL CELL,UR NONE SEEN /LPF (FEW); UA COLLECTION TYPE NON-SPECIFIED; WBC,URINE 0-4 /HPF (0-4)
[2024-12-21] MEDS: INSULIN LISPRO 100 UNIT/ML INSULN.PEN MULTI-DOSE SQ SCH (17:00)
--- NOTE | 2024-12-21 17:44 | RADIOLOGY REPORT ---
PROCEDURE: MR MRI HEAD Indication: rule out cva COMPARISON: CT CT HEAD on DOS: 12/20/24 TECHNIQUE: Multiplanar multisequence images of the brain are obtained. FINDINGS: There is no abnormal diffusion restriction. Mild volume loss. Mild periventricular and subcortical w janny matter T2 and FLAIR hyperintense changes. There is no intracranial hemorrhage. No extra-axial fl uid collection, mass effect or midline shift. The ventricles are midline and normal in size. The cist erns are patent. Normal intracranial flow voids are preserved. No abnormal susceptibility signal. The sinuses and mastoids are well pneumatized. The visualized orbits are unremarkable. IMPRESSION: 1. No acute cerebrovascular ischemia. 2. Mild chronic microvascular ischemic changes.
[2024-12-21 18:00] VITALS: BP 154/87; PULSE 78; RESP 22; TEMP 98.3; O2SAT 98
--- NOTE | 2024-12-21 18:35 | CARDIOLOGY REPORT ---
APPROVED REPORT EXAM: Comprehensive 2D, Doppler, and color-flow Echocardiogram. Patient Location: [facility] Heart Rate: 78 bpm Rhythm: SINUS Indications CEREBRALVASCULAR ACCIDENT EVALAUTE PFO Spout Positioner: NONE Previous echo: NONE 2D Dimensions RVDd 4.4 cm LA Diam4.3 cm LVOT Diameter 2.11 (1.8-2.4cm) CO 8.9 L/min M-Mode Dimensions Left Atrium(MM) 4.40 (2.5-4.0cm) IVSd 0.97 (0.7-1.1cm) LVDd 5.76 (4.0-5.6cm) Aortic Root 3.27 (2.2-3.7cm) PWd 0.66 (0.7-1.1cm) Aortic Cusp Exc 2.45 (1.5-2.0cm) IVSs 1.63 cm MV EPSS 0.5 (<0.5cm) LVDs 3.50 (2.0-3.8cm) FS (%) 39 % PWs 1.87 cm ESV(Teich) 50.9 ml LVEF(%) 69 (>50%) Aortic Valve AoV Peak Ruben. 205.0 cm/s AoV VTI 34.8 cm AO Peak GR. 16.8 mmHg AO Mean GR. 9 mmHg LVOT VTI 31.58 cm LVOT Peak Ruben. 155.2 cm/s JACIEL(VTI)/BSA 3.18 cm2/m2 JACIEL (VTI) 3.18 cm2 Mitral Valve MV E Velocity 81.2 cm/s MV Peak Gr. 3 mmHg MV DECEL TIME 240 ms MV A Velocity 64.4 cm/s MV PHT 80 ms E/A Ratio 1.3 MVA (PHT) 2.75 cm2 MV VMax83.4 cm/s TDI Medial E' P. V 16.03 cm/s E/Medial E' 5.1 Tricuspid Valve TR P. Velocity 302 cm/s RAP ESTIMATE 10 mmHg TR Peak Gr. 37 mmHg RVSP 47 mmHg Pulmonary Vein S1 Velocity 68.2 cm/s D2 Velocity 53.3 cm/s PVa Uijxazxn83.9 cm/s PVa Oqcmxelh601 msec LEFT VENTRICLE Increased LV size with mildl cocentric hypertrophy. Overall systolic function is normal. LVEF is 65%. RIGHT VENTRICLE RV is moderately increased in size with adequate function. Elevated right heart pressures as noted ab ove. ATRIA Left atrium is mildly dilated. Mobile interatrial septum - no flow detected. Saline study was perform ed with 2 IV injections of 10 ccs of agitated normal saline at rest, with cough, and with valsalva. N egative saline study for right to left flow. AORTIC VALVE Trileaflet AV appears mildly sclerotic without stenosis or insufficiency. MITRAL VALVE Normal MV annulus with thickened leaflets without stenosis. Brittany regurgitation. TRICUSPID VALVE TV appears structurally normal with trace regurgitation. PULMONIC VALVE Normal PV without stenosis, physiologic insufficiency. GREAT VESSELS Aortic root is normal in size. Ascending aorta is normal in size. PERICARDIUM Normal pericardium. No effusion. Prominent anterior epicardial fat pad. Other Information Study Quality: Adequate Conclusion Increased LV size with mildl cocentric hypertrophy. Overall systolic function is normal. LVEF is 65%. RV is moderately increased in size with adequate function. Elevated right heart pressures with an RV Sp of 47 mmHg. Left atrium is mildly dilated. Mobile interatrial septum - no flow detected. Saline study was perfo rmed with 2 IV injections of 10 ccs of agitated normal saline at rest, with cough, and with valsalva. Negative saline study for right to left flow. Trileaflet AV appears mildly sclerotic without stenosis or insufficiency. Normal MV annulus with thickened leaflets without stenosis. Trace regurgitation. TV appears structurally normal with trace regurgitation. Normal pericardium. No effusion. Prominent anterior epicardial fat pad.
[2024-12-21] MEDS ORDERED: Melatonin 3mg tablet PO PRN (20:35)
[2024-12-21 22:00] VITALS: BP 145/77; PULSE 69; RESP 18; TEMP 98.8; O2SAT 100
--- NOTE | 2024-12-22 00:11 | RADIOLOGY REPORT ---
INDICATION: fatimah, uti TECHNIQUE: Multiple real-time sonographic images of the kidneys and bladder were obtained. COMPARISON: None FINDINGS: RIGHT kidney measures 11.2 x 6.7 x 4.8 cm in length. No hydronephrosis. LEFT kidney measures 10.5 x 5.9 x 4.8 cm in length. No hydronephrosis. No large intraluminal masses are seen in the bladder. Bilateral ureteral jets identified. Post void residual was not assessed. IMPRESSION: 1. Unremarkable examination.
[2024-12-22 02:00] VITALS: BP 140/78; PULSE 57; RESP 20; TEMP 97.9; O2SAT 99
[2024-12-22 05:29] LABS: BASOPHILS % (AUTO) 0.7 % (0-1); EOSINOPHILS # (AUTO) 0.2 X10'3 (0-0.9); EOSINOPHILS % (AUTO) 3.6 % (0-6); HEMATOCRIT 36.3 % (35.0-45.0); HEMOGLOBIN 12.3 g/dl (12.0-16.0); LYMPHOCYTES # (AUTO) 2.5 X10'3 (1.1-4.8); MEAN CORPUSCULAR HEMOGLOBIN 30.2 PG (27.0-31.0); MEAN CORPUSCULAR HGB CONC 33.9 g/dL (33.0-36.5); MEAN CORPUSCULAR VOLUME 89.1 FL (78-98); MEAN PLATELET VOLUME 8.2 FL (7.4-10.4); MONOCYTES # (AUTO) 0.5 X10'3 (0-0.9); MONOCYTES % (AUTO) 8.2 % (2-12); NEUTROPHILS # (AUTO) 3.2 X10'3 (1.8-7.7); NEUTROPHILS % (AUTO) 49.5 % (42-75); PLATELET COUNT 239 X10'3 (140-440); RED BLOOD COUNT 4.07 X10'6 (4.20-5.60); RED CELL DISTRIBUTION WIDTH 14.3 % (11.5-14.5); WHITE BLOOD COUNT 6.5 X10'3 (4.5-11.0)
[2024-12-22 05:51] LABS: ALANINE AMINOTRANSFERASE 16 U/L (12-78); ALBUMIN 3.2 G/DL (3.4-5.0); ALKALINE PHOSPHATASE 52 IU/L (46-116); ANION GAP 8 (8-16); ASPARTATE AMINO TRANSFERASE 39 U/L (10-37); BILIRUBIN,TOTAL 0.4 MG/DL (0.1-1.0); BLOOD UREA NITROGEN 13 MG/DL (7-18); CALCIUM 8.8 MG/DL (8.5-10.1); CHLORIDE 112 MMOL/L (99-107); CREATININE 0.81 MG/DL (0.40-0.90); GLUCOSE 90 MG/DL (70-104); MAGNESIUM 2.2 MG/DL (1.5-2.4); POTASSIUM 3.9 MMOL/L (3.5-5.1); SODIUM 145 MMOL/L (135-145); TOTAL CARBON DIOXIDE 24.9 MMOL/L (24-32); TOTAL PROTEIN 6.5 G/DL (6.4-8.2); eCRCL 77 ML/MIN; eGFR 71 ML/MIN
[2024-12-22 06:00] VITALS: BP 144/73; PULSE 56; RESP 20; TEMP 97.8; O2SAT 100
--- NOTE | 2024-12-22 07:31 | PROGRESS NOTE ---
Daily Progress Note Providers to CC ~ Antibiotic Timeout Antibiotic Ordered?: Yes Subjective No acute events overnight. Patient examined at bedside. No new complaints, not in acute distress. Patient denies chest pain, sob, palpitations, abdominal pain, n/v/d. Vss, labs unremarkable. Patient is medically clear for [facility] evaluation. Objective Vital Signs Date Time Temp Pulse Resp B/P (MAP) Pulse Ox O2 Delivery O2 Flow Rate FiO2 12/22/24 02:00 97.9 57 20 140/78 (98) 99 Room Air Result Diagram: 12/22/242 12/22/24 044 Physical Exam General: A&Ox 3, NAD HEENT: Normocephalic, PERRLA Neck: Supple, trachea midline, no JVD Chest: Clear to auscultation bilaterally Cardiovascular: RRR, S1&S2 GI: Soft and nontender Extremities: No cyanosis/clubbing/or edema TURN OPERATOR: CN II-XII intact, no focal deficits Musculoskeletal: No paraspinal muscle tenderness, no muscle spasm Skin: Warm and intact Problem\Assessment\Plan Problems/Diagnosis: (1) UTI (urinary tract infection) # Metabolic encephalopathy 2/2 UTI vs CVA vs worsening schizophrenia # UTI -12/21: continued on Rocephin; CT head, CTA head/neck negative; tele sinus in 60s, MRI head negative for acute cerebrovascular ischemia. # Expressive aphasia # Bipolar/schizoaffective disorder -on hold for gravely disabled, sitter -Awaiting psychiatric evaluation/ [facility] evaluation when medically cleared -Patient is medically clear for [facility] evaluation # Hypernatremia # Hyperglycemia -12/21: dc NS, start D5W, hyper/hypoglycemic protocol DVT/VTE prophylaxis: Lovenox Code Status: Full Code Date of Service: Dec 22, 2024 Billing Provider: RUBINA CEJA Common Visit Codes: [id number] INP/OBS CARE(MOD) RUBINA CEJA Dec 22, 2024 07:31
[2024-12-22 10:00] VITALS: BP 120/78; PULSE 83; RESP 17; TEMP 98.2; O2SAT 96
[2024-12-22 18:00] VITALS: BP 157/91; PULSE 83; RESP 20; TEMP 98.6; O2SAT 98
[2024-12-22 22:00] VITALS: BP 128/72; PULSE 72; RESP 16; TEMP 98.4; O2SAT 96
[2024-12-23 05:42] LABS: ALANINE AMINOTRANSFERASE 21 U/L (12-78); ALBUMIN 3.5 G/DL (3.4-5.0); ALBUMIN/GLOBULIN RATIO 1.1 (1.1-1.5); ALKALINE PHOSPHATASE 65 IU/L (46-116); ANION GAP 9 (8-16); ASPARTATE AMINO TRANSFERASE 39 U/L (10-37); BILIRUBIN,TOTAL 0.4 MG/DL (0.1-1.0); BLOOD UREA NITROGEN 11 MG/DL (7-18); BUN/CREATININE RATIO 17.2 (10.0-20.0); CALCIUM 9.1 MG/DL (8.5-10.1); CHLORIDE 111 MMOL/L (99-107); CREATININE 0.64 MG/DL (0.40-0.90); GLUCOSE 92 MG/DL (70-104); MAGNESIUM 2.4 MG/DL (1.5-2.4); POTASSIUM 4.3 MMOL/L (3.5-5.1); SODIUM 146 MMOL/L (135-145); TOTAL CARBON DIOXIDE 25.6 MMOL/L (24-32); TOTAL PROTEIN 6.8 G/DL (6.4-8.2); eCRCL 97 ML/MIN; eGFR > 90 ML/MIN
[2024-12-23 05:44] LABS: BASOPHILS % (AUTO) 0.6 % (0-1); EOSINOPHILS # (AUTO) 0.2 X10'3 (0-0.9); EOSINOPHILS % (AUTO) 2.8 % (0-6); HEMATOCRIT 40.2 % (35.0-45.0); HEMOGLOBIN 13.4 g/dl (12.0-16.0); LYMPHOCYTES # (AUTO) 2.9 X10'3 (1.1-4.8); LYMPHOCYTES % (AUTO) 40.4 % (21-51); MEAN CORPUSCULAR HGB CONC 33.4 g/dL (33.0-36.5); MEAN CORPUSCULAR VOLUME 89.8 FL (78-98); MEAN PLATELET VOLUME 8.4 FL (7.4-10.4); MONOCYTES # (AUTO) 0.6 X10'3 (0-0.9); MONOCYTES % (AUTO) 7.7 % (2-12); NEUTROPHILS # (AUTO) 3.5 X10'3 (1.8-7.7); NEUTROPHILS % (AUTO) 48.5 % (42-75); PLATELET COUNT 234 X10'3 (140-440); RED BLOOD COUNT 4.48 X10'6 (4.20-5.60); RED CELL DISTRIBUTION WIDTH 14.5 % (11.5-14.5); WHITE BLOOD COUNT 7.2 X10'3 (4.5-11.0)
[2024-12-23 06:00] VITALS: BP 125/60; PULSE 69; RESP 16; TEMP 97.8; O2SAT 99
[2024-12-23 10:00] VITALS: BP 124/74; PULSE 87; RESP 16; TEMP 98.2; O2SAT 98
[2024-12-23 18:30] VITALS: BP 151/90; PULSE 83; RESP 17; TEMP 98.2; O2SAT 98
--- NOTE | 2024-12-23 21:03 | PROGRESS NOTE ---
Daily Progress Note Providers to CC ~ Antibiotic Timeout Antibiotic Ordered?: Yes Subjective No acute events overnight. Patient examined at bedside. No new complaints, not in acute distress. Patient denies chest pain, sob, palpitations, abdominal pain, n/v/d. Vss, labs unremarkable. Pending placement. Objective Vital Signs Date Time Temp Pulse Resp B/P (MAP) Pulse Ox O2 Delivery O2 Flow Rate FiO2 12/23/24 18:30 98.2 83 17 151/90 (110) 98 Room Air Result Diagram: 12/23/24 0501 12/23/24 0501 Physical Exam General: A&Ox 3, NAD HEENT: Normocephalic, PERRLA Neck: Supple, trachea midline, no JVD Chest: Clear to auscultation bilaterally Cardiovascular: RRR, S1&S2 GI: Soft and nontender Extremities: No cyanosis/clubbing/or edema CT TECHNOLOGIST: CN II-XII intact, no focal deficits Musculoskeletal: No paraspinal muscle tenderness, no muscle spasm Skin: Warm and intact Problem\Assessment\Plan Problems/Diagnosis: (1) UTI (urinary tract infection) # Metabolic encephalopathy 2/2 UTI vs CVA vs worsening schizophrenia # UTI -12/21: continued on Rocephin; CT head, CTA head/neck negative; tele sinus in 60s, MRI head negative for acute cerebrovascular ischemia. # Expressive aphasia # Bipolar/schizoaffective disorder -on hold for gravely disabled, sitter -Awaiting psychiatric evaluation/ formerly [facility], [facility] evaluation when medically cleared -Patient is medically clear for [facility] evaluation -12/23: pending placement # Hypernatremia # Hyperglycemia -12/21: dc NS, start D5W, hyper/hypoglycemic protocol DVT/VTE prophylaxis: Lovenox Code Status: Full Code Date of Service: Dec 24, 2024 Billing Provider: RUBINA CEJA Common Visit Codes: [id number] INP/OBS CARE(MOD) RUBINA CEJA Dec 23, 2024 21:03
[2024-12-23 22:00] VITALS: BP 128/74; PULSE 81; RESP 17; TEMP 97.9; O2SAT 96
[2024-12-24 06:00] VITALS: BP 132/75; PULSE 67; RESP 18; TEMP 98.1; O2SAT 97
[2024-12-24 07:39] VITALS: BP_SYST 132; PULSE 67
--- NOTE | 2024-12-24 12:29 | DISCHARGE SUMMARY ---
Discharge Summary Providers to CC ~ Discharge Summary Admission Diagnosis: Encephalopathy, MIZRA, UTI, Psychosis Hospital Course DATE OF ADMISSION: 12/20/24 DATE OF DISCHARGE: 12/24/24 Discharge Diagnosis\\Comment: Metabolic encephalopathy 2/2 UTI UTI Prerenal MIRZA 2/2 dehydration/vasomotor nephropathy- POA Expressive aphasia Bipolar/schizoaffective disorder Hypernatremia Hyperglycemia CVA-ruled out Operations\\Procedures: None Consultants: Teleneurologist Dr. Herminia Mccann Complications: None Condition on DC: Stable Continued Medications: Amlodipine Besylate (Amlodipine Besylate) 5 Mg Tablet 1 TABLET PO DAILY, #30 TABLET 5 Refills Bisacodyl (Bisacodyl) 10 Mg Supp.rect 1 SUPP RC DAILY for constipation for 6 Days, #6 SUPP 0 Refills Olanzapine (Olanzapine) 2.5 Mg Tablet 1 TAB PO HS for 30 Days, #30 TAB 0 Refills Quetiapine Fumarate (Quetiapine Fumarate) 50 Mg Tablet 1 TAB PO HS Discharge Summary: History of Present Illness From H&P: "This is a 64-year-old female who is having difficulty with memory and a poor historian regards to her medical history and the patient exhibits word- finding in his aware that she is having difficulty coming up with various items of her medical history. The patient was seen at [facility] in his staying at a temporary housing at this program. Per ED note the patient is noncompliant with her psychiatric medications and per [facility] the patient is been acting erratically and has grandiose delusions and is here for initially mental health evaluation in his wearing green scrubs. The patient has a UTI and when I interviewed her I am concerned that the patient may have a CVA prior to evaluating the patient had admitted the patient to surgery floor I am going to transfer the patient to the ortho neuro floor on telemetry an MRI of the head is ordered as well as the CTA of the head and CTA of the head and neck and an echocardiogram as well as a fasting lipid panel. The patient is receiving IV Rocephin for her UTI- I have placed her on a hold with a sitter." Hospital Course Diagnostic findings were notable for urinalysis indicating urinary tract infecti on, abnormal renal function. Patient was continued on 1798 hold and sitter for being gravely disabled. Patient was treated with empirical antibiotics and intravenous fluids. Due to presenting symptoms, patient was evaluated by teleneurologist Dr. Mccann with recommendation for continued treatment for urinary tract infection as presentation likely is toxic/metabolic encephalopathy. CT head, CTA head/neck, MRI head were unremarkable. Tele remained sinus in 60s-80s. With initiation of therapy, acute kidney injury resolved. Patient was seen and was cleared by [facility]. Patient did not experience further complications throughout the entire hospital stay and made a good recovery. Patient was seen and examined on the day of discharge. All labs, diagnostic workups, discharge plan discussed with patient in details during visit before discharge. All questions and concerns answered to the best of my professional knowledge. Patient is to be discharged to home to self and to follow up with PCP within 2 weeks. Physical Exam General: A&Ox 3, NAD HEENT: Normocephalic, PERRLA Neck: Supple, trachea midline, no JVD Chest: Clear to auscultation bilaterally Cardiovascular: RRR, S1&S2 GI: Soft and nontender Extremities: No cyanosis/clubbing/or edema TAX REPRESENTATIVE: CN II-XII intact, no focal deficits Musculoskeletal: No paraspinal muscle tenderness, no muscle spasm Skin: Warm and intact *Problems/Diagnosis: (1) UTI (urinary tract infection) Status: Acute Total Time Spent on D/C: > 30 Minutes Date of Service: Dec 24, 2024 Billing Provider: RUBINA CEJA Common Visit Codes: [id number]/[id number] DISCH DAY >30min RUBINA CEJA Dec 24, 2024 12:28
== END 2024-12-24 10:45 | disposition home or self-care (01) | DRG 463 ==
LOC: ER 09:02 → ED HOLD 13:29 → EEVIPCON 13:29 → SUR 3N 16:40 → ORTHO 4S 20:45
PROVIDERS: ADMIT Family Medicine; ATTEND Family Medicine
DX: N12 Tubulo-interstitial nephritis, not specified as acute or chronic (principal); N17.0 Acute kidney failure with tubular necrosis; G92.8 Other toxic encephalopathy; E87.0 Hyperosmolality and hypernatremia; F25.9 Schizoaffective disorder, unspecified; Z20.822 Contact with and (suspected) exposure to COVID-19; F31.9 Bipolar disorder, unspecified; R73.9 Hyperglycemia, unspecified; Z91.148 Patient's other noncompliance with medication regimen for other reason
CPT/HCPCS: 36415; 70450; 70496; 70498; 70551; 76770; 80048; 80053; 80061; 80305; 80320; 81001; 81025; 82948; 83036; 83735; 84443; 85025; 87081; 87088; 87811; 93306; 96365; 96375; 97116; 97161; 97530; 99285; G0378; J0360; J0696; J1650; J1815; J7030; J7042; J7070; Q9967

== ENCOUNTER 2024-12-24 20:00 | Emergency (ER) | payer MEDICAID ==
[~2024-12-24] VITALS: Ht 177.8 cm; Wt 122.5 kg
[~2024-12-24 20:00] MED LIST changes: -CEPH-585 PO; -OLAN10TA73 PO; +QUET50TA24 PO
[2024-12-24 23:39] LABS: URINE HCG NEGATIVE (NEG)
[2024-12-24 23:46] LABS: BILIRUBIN,URINE NEGATIVE (Neg); CLARITY,URINE CLEAR (Clear); COLOR,URINE YELLOW (Yellow); GLUCOSE, URINE NEGATIVE (Neg); KETONES,URINE TRACE mg/dl (Neg); LEUKOCYTE ESTERASE ,URINE TRACE (Neg); NITRITES, URINE NEGATIVE (Neg); OCCULT BLOOD,URINE NEGATIVE (Neg); PH,URINE 5.5 (4.8-8.0); PROTEIN,URINE NEGATIVE (Neg); UROBILINOGEN,URINE 0.2 E.U/dL (0.2-1.0)
[2024-12-24 23:53] LABS: UA COLLECTION TYPE VOIDED
[2024-12-24 23:54] LABS: RBC,URINE 0-2 /HPF (0-2)
[2024-12-24 23:55] LABS: BACTERIA,URINE FEW /HPF (Neg); MUCUS STRANDS MODERATE /LPF (Neg); SQUAMOUS EPITHELIAL CELL,UR FEW /LPF (FEW)
[2024-12-25 00:02] LABS: URINE AMPHETAMINE SCREEN NEGATIVE (Neg); URINE BARBITUATE SCREEN NEGATIVE (Neg); URINE BENZODIAZEPINES SCREEN NEGATIVE (Neg); URINE CANNABINOID SCREEN NEGATIVE (Neg); URINE COCAINE SCREEN NEGATIVE (Neg); URINE METHADONE SCREEN NEGATIVE (Neg); URINE OPIATE SCREEN NEGATIVE (Neg); URINE PHENCYCLIDINE SCREEN NEGATIVE (Neg)
[2024-12-25 00:09] LABS: BASOPHILS # (AUTO) 0.1 X10'3 (0-0.2); BASOPHILS % (AUTO) 0.6 % (0-1); EOSINOPHILS # (AUTO) 0.1 X10'3 (0-0.9); HEMATOCRIT 39.2 % (35.0-45.0); HEMOGLOBIN 13.5 g/dl (12.0-16.0); LYMPHOCYTES # (AUTO) 1.8 X10'3 (1.1-4.8); LYMPHOCYTES % (AUTO) 20.5 % (21-51); MEAN CORPUSCULAR HEMOGLOBIN 30.6 PG (27.0-31.0); MEAN CORPUSCULAR HGB CONC 34.4 g/dL (33.0-36.5); MEAN PLATELET VOLUME 8.3 FL (7.4-10.4); MONOCYTES # (AUTO) 0.7 X10'3 (0-0.9); MONOCYTES % (AUTO) 8.1 % (2-12); NEUTROPHILS # (AUTO) 6.1 X10'3 (1.8-7.7); NEUTROPHILS % (AUTO) 69.8 % (42-75); PLATELET COUNT 262 X10'3 (140-440); RED BLOOD COUNT 4.41 X10'6 (4.20-5.60); RED CELL DISTRIBUTION WIDTH 14.2 % (11.5-14.5); WHITE BLOOD COUNT 8.8 X10'3 (4.5-11.0)
[2024-12-25 00:14] LABS: ALBUMIN 3.7 G/DL (3.4-5.0); ANION GAP 8 (8-16); BLOOD UREA NITROGEN 15 MG/DL (7-18); BUN/CREATININE RATIO 15.8 (10.0-20.0); CALCIUM 9.3 MG/DL (8.5-10.1); CHLORIDE 109 MMOL/L (99-107); CREATININE 0.95 MG/DL (0.40-0.90); ETHANOL < 10 MG/DL (<10); GLUCOSE 131 MG/DL (70-104); POTASSIUM 3.7 MMOL/L (3.5-5.1); SODIUM 143 MMOL/L (135-145); THYROID STIMULATING HORMONE 1.42 ulU/ml (0.34-4.50); TOTAL CARBON DIOXIDE 26.4 MMOL/L (24-32); eCRCL 66 ML/MIN; eGFR 59 ML/MIN
--- NOTE | 2024-12-25 00:41 | Physician Documentation ---
History of Present Illness ~ Chief Complaint: 5550 Stated Complaint: MEDICATION Time Seen by MD: 21:44 Source: patient Mode of Arrival: Dropped Off HPI Patient with a history of schizoaffective disorder. Recently discharged from [facility] just this morning. [facility] and [facility] again on a psychiatric hold. Patient believes that the [employer]afia is after her. She feels she is in danger. Currently on Seroquel. Medication Reconciliation Allergies: Coded Allergies: No Known Allergies (Unverified , 12/24/24) Scheduled Amlodipine Besylate (Amlodipine Besylate), 1 TABLET PO DAILY, (Reported) Bisacodyl (Bisacodyl), 1 SUPP RC DAILY Olanzapine (Olanzapine), 1 TAB PO HS Quetiapine Fumarate (Quetiapine Fumarate), 1 TAB PO HS, (Reported) Discontinued Medications Cephalexin*Monohydrate* (Keflex*), 1 CAP PO QID Discontinued Reason: patient no longer taking Olanzapine (Olanzapine), 25 MG PO HS, (Reported) Discontinued Reason: Other Past Medical History Past Medical History: *PSYCH* Other Past Medical History: Schizoaffective disorder Past Surgical History: no surgical history Patient History: FH: ovarian cancer MOTHER Drug Use: none Lives In: Other Review of Systems All Other Systems at this time: Reviewed and Negative Physical Exam Vital Signs: Temperature: 97.2, Source: Temporal, Heart Rate: 47, Respiratory Rate: 12, BP: 132/94, Pulse Oximetry: 95, Weight: 122.500 Oxygen Flow Rate: 0 Physical Exam General: Alert and oriented x4, well-appearing, well-nourished, no acute distress HEENT: Normocephalic, atraumatic, no visible or palpable masses or depression, extraocular movements intact, PERRLA, no scleral icterus, neck is supple and nontender, mucous membranes moist Heart: Regular rate and rhythm, no murmurs, rubs or gallops Lungs: Clear to auscultation bilaterally, normal work of breathing Abdomen: Soft, nontender, no palpable masses, normal bowel sounds Back: Spine is without deformity or tenderness, no CVA tenderness Extremities: Full range of motion, no acute deformity, peripheral pulses intact, no cyanosis or edema Musculoskeletal: Normal gait, normal tone Neurologic: Cranial nerves 2-12 are intact, reflexes normal Psychiatric: Alert and oriented x4, delusional, no SI or HI Skin: Good turgor, no rashes Progress Results/Orders Results/Orders Orders - AGUS SAURE MD Covid19 Binax Poc Result Entry (12/24/24 22:57) Med Rec (12/24/24 23:24) 1799.11 (12/24/24 23:24) Close Observation Level (12/24/24 23:24) Substance Use Navigator (12/24/24 23:24) Regular Diet (12/25/24 Breakfast) Completed Orders - AGUS SAUER MD Cbc/Diff (12/24/24 23:24) Hcg, Ur Ql (12/24/24 23:24) Drug Screen, Urine (12/24/24 23:24) Ethanol (12/24/24 23:24) TSH (12/24/24 23:24) BMP (12/24/24 23:24) Ua With Microscopic (12/24/24 23:00) Vital Signs 12/24/24 12/24/24 12/24/24 20:16 23:02 23:12 Temp 97.2 97.2 Pulse 98 47 Resp 18 10 12 B/P (MAP) 145/87 132/94 (107) Pulse Ox 98 95 O2 Flow Rate 0 0 Laboratory Tests Test 12/24/24 22:45 12/24/24 23:00 12/24/24 23:44 SARS-CoV-2 Antigen (Rapid) Negative Urine Specimen Description Voided Urine Color Yellow Urine Clarity Clear Urine pH 5.5 Urine Specific [place] 1.025 Urine Protein Negative Urine Glucose (UA) Negative Urine Ketones Trace H Urine Occult Blood Negative Urine Nitrite Negative Urine Bilirubin Negative Urine Urobilinogen 0.2 Urine Leukocyte Esterase Trace H Urine RBC 0-2 Urine WBC 5-10 H Urine Squamous Epithelial Cells Few Urine Bacteria Few Urine Mucus Moderate Volume Urine Centrifuged 10 ml Urine HCG, Qualitative Negative Urine Comment Urine Opiates Screen Negative Urine Methadone Screen Negative Urine Fentanyl Screen Negative Urine Barbiturates Screen Negative Urine Phencyclidine Screen Negative Urine Amphetamines Screen Negative Urine Benzodiazepines Screen Negative Urine Cocaine Screen Negative Urine Cannabinoids Screen Negative Drug Screen Comment White Blood Count 8.8 Red Blood Count 4.41 Hemoglobin 13.5 Hematocrit 39.2 Mean Corpuscular Volume 89.0 Mean Corpuscular Hemoglobin 30.6 Mean Corpuscular Hemoglobin Concent 34.4 Red Cell Distribution Width 14.2 Platelet Count 262 Mean Platelet Volume 8.3 Neutrophils (%) (Auto) 69.8 Lymphocytes (%) (Auto) 20.5 L Monocytes (%) (Auto) 8.1 Eosinophils (%) (Auto) 1.0 Basophils (%) (Auto) 0.6 Neutrophils # (Auto) 6.1 Lymphocytes # (Auto) 1.8 Monocytes # (Auto) 0.7 Eosinophils # (Auto) 0.1 Basophils # (Auto) 0.1 CBC Comment Sodium Level 143 Potassium Level 3.7 Chloride Level 109 H Carbon Dioxide Level 26.4 Anion Gap 8 Blood Urea Nitrogen 15 Creatinine 0.95 H Estimated GFR/1.73 m2 59 BUN/Creatinine Ratio 15.8 Glucose Level 131 H Calcium Level 9.3 Albumin 3.7 Thyroid Stimulating Hormone (TSH) 1.42 Chemistry Comments Ethyl Alcohol Level < 10 Departure Impression: Primary Impression: Schizoaffective disorder Qualified Codes: F25.9 - Schizoaffective disorder, unspecified Additional Impression: Delusional disorder Additional Impression Text Patient in with delusions. History of schizoaffective disorder. Medically cleared for evaluation by [facility]. Condition: Stable Referrals: NO PRIMARY CARE PROVIDER (PCP) Signature Scribe Signature: No scribe Attestation: No scribe AGUS SAUER MD Dec 25, 2024 00:41
[2024-12-25 19:50] VITALS: BP 150/90; PULSE 81; RESP 16; TEMP 97.2; O2SAT 99
== END 2024-12-25 23:26 ==
LOC: ER 20:01
DX: F25.9 Schizoaffective disorder, unspecified (principal); F22 Delusional disorders; Z79.899 Other long term (current) drug therapy; Z20.822 Contact with and (suspected) exposure to COVID-19
CPT/HCPCS: 36415; 80048; 80305; 80320; 81001; 81025; 84443; 85025; 87811; 99285

== ENCOUNTER 2025-01-19 11:52 | Emergency (ER) | payer MEDICAID ==
[~2025-01-19] VITALS: Ht 177.8 cm; Wt 127.3 kg
[2025-01-19 11:56] VITALS: BP 128/86; PULSE 81; RESP 20; O2SAT 97
--- NOTE | 2025-01-19 13:07 | RADIOLOGY REPORT ---
CLINICAL INDICATION: HIP PAIN TECHNIQUE: 3 radiographic views of the left hip were obtained. Comparison: None FINDINGS/IMPRESSION: There is no evidence of acute fracture or dislocation. [id number] degenerative changes of bilateral hips. Small well corticated bony fragment lateral to the left femoral head and neck junction which represent sequela of prior injury. Moderate to severe degenerative changes at L5-S1. Large amount of fecal material within the partially visualized colon.
--- NOTE | 2025-01-19 13:12 | RADIOLOGY REPORT ---
EXAM: DI KNEE, COMP 4 VW MIN CLINICAL INDICATION: KNEE PAIN TECHNIQUE: DI KNEE, COMP 4 VW MIN Comparison: None FINDINGS/IMPRESSION: There is no evidence of acute fracture or dislocation. Severe Right knee osteoarthritis. The alignment is anatomical. There is no radiopaque foreign body.
--- NOTE | 2025-01-19 13:19 | Physician Documentation ---
History of Present Illness ~ Chief Complaint: Mechanical Fall Stated Complaint: FALL Time Seen by MD: 13:01 OK to notify your PCP?: Yes Source: patient Mode of Arrival: POV Exam Limitations: no limitations HPI This is a 64-year-old female who comes in complaining of pain of the left hip and knee. The patient states she had a fall walking down a hallway earlier today. She is able to stand and ambulate on the left hip the knee however this does elicit some tenderness. She denies hitting her head or KO. She denies taking blood thinners. She is not complaining of neck, chest, back or abdominal pain Tetanus within 5 Years?: No Medication Reconciliation Allergies: Coded Allergies: No Known Allergies (Unverified , 01/19/25) Scheduled Amlodipine Besylate (Amlodipine Besylate), 1 TABLET PO DAILY, (Reported) Bisacodyl (Bisacodyl), 1 SUPP RC DAILY Olanzapine (Olanzapine), 1 TAB PO HS Quetiapine Fumarate (Quetiapine Fumarate), 1 TAB PO HS, (Reported) Past Medical History Past Medical History: *PSYCH* Past Surgical History: no surgical history Patient History: FH: ovarian cancer MOTHER Drug Use: none Lives In: Other Physical Exam Vital Signs: Temperature: 97.8, Source: Temporal, Heart Rate: 81, Respiratory Rate: 20, BP: 128/86, Pulse Oximetry: 97, Weight: 127.270 Oxygen Flow Rate: 0 Pulse Oximetry Reflects: adequate oxygenation General Appearance: alert, WD/WN, no apparent distress Head: no evidence of injury Extremities To inspection of the left hip no obvious trauma or deformity. There was no ex ternal rotation then shortening or internal rotation and lengthening. No crepitus deformity palpation of the joint or the femur. The pelvic girdle is stable. To inspection of the left knee. No obvious trauma. With the minimal lateral joint line tenderness without crepitus or deformity. There is subjective pain with flexion-extension of the knee though the pain is minimal and there was no range of motion deficits. Patella tendon is intact. No tenderness or deformity to palpation of the distal tib-fib with the proximal femur. Progress Results/Orders Reviewed/noted all lab results: Yes Results/Orders Vital Signs 01/19/25 11:56 Temp 97.8 Pulse 81 Resp 20 B/P (MAP) 128/86 Pulse Ox 97 O2 Flow Rate 0 EKG/XRAY/CT/US/VASC/MRI Bone/Soft Tissue X-Ray (Ext.) : Interpreted By: self Additional Comment X-ray left hip two-view with AP pelvis interpreted by me: No obvious the keeps fracture or malalignment. Soft tissues are unremarkable. Moderate degenerative changes of the left hip joint seen X-ray left knee three-view interpreted by me: No acute fracture. No malalignment. Moderate to severe degenerative changes Medical Decision Making Findings X-rays of the left knee and hip were negative for any acute findings or fracture. The patient clinically is well-appearing and significant distress. The x-rays were negative and the patient is requesting a prescription for ibuprofen. She does not want any stronger pain medication. I instructed her to apply cold compresses to the sore areas for 20 minutes every 2 hours for the 1st few days and elevate the knee as much as possible. Follow up with the primary care physician for recheck in the next one or two days return to the ER for any worsening or concerning symptoms Additional Comment Left knee contusion. Left tibial plateau fracture. Left patellar fracture. Left hip fracture. Left hip contusion. Departure Disposition: HOME / SELF CARE / HOMELESS Impression: Primary Impression: Contusion of left knee Additional Impression: Contusion of left hip Condition: Stable Discharge Instructions: Contusion Additional Instructions: Apply cold compresses to the sore areas of the body for 20 minutes every 2 hours for the 1st few days and rest. Take ibuprofen for discomfort. Follow up with the primary care physician for recheck in the next one or two days and return to the ER for any worsening or concerning symptoms Referrals: NO PRIMARY CARE PROVIDER (PCP) Prescriptions Ibuprofen (Ibu) 600 Mg Tablet 1 TAB PO Q6H for pain for 6 Days, #24 TAB 0 Refills Prov: DEREK MARIO 01/19/25 Signature Scribe Signature: No scribe Attestation: The note accurately reflects work and decisions made by me.Derek ASENCIO 01/19/25 13:25 DEREK MARIO Jan 19, 2025 13:19
[2025-01-19] MEDS ORDERED: IBUP-862 PO (13:25)
[2025-01-19 13:32] VITALS: TEMP 97.8
== END 2025-01-19 13:34 | disposition home or self-care (01) ==
LOC: ER 11:53
DX: S70.02XA Contusion of left hip, initial encounter (principal); S80.02XA Contusion of left knee, initial encounter; Z79.899 Other long term (current) drug therapy; W18.39XA Other fall on same level, initial encounter; Y93.89 Activity, other specified; Y92.89 Other specified places as the place of occurrence of the external cause; Y99.8 Other external cause status
CPT/HCPCS: 73502; 73564; 99284